=== PATIENT | female | born 1975 | race Caucasian/White ===

== ENCOUNTER 2016-06-13 17:26 | Emergency (ER) | payer MEDICARE, OTHER ==
[2016-06-13 18:27] LABS: BILIRUBIN NEGATIVE (NEGATIVE); BLOOD NEGATIVE Ery/uL (NEGATIVE); CLARITY CLEAR (CLEAR); COLOR STRAW (YELLOW); GLUCOSE (U) NORMAL (NORMAL); KETONE (U) NEGATIVE (NEGATIVE); LEUKOCYTES NEGATIVE Leu/uL (NEGATIVE); NITRITE NEGATIVE (NEGATIVE); PROTEIN NEGATIVE (NEGATIVE); UROBILINOGEN 0.2 mg/dL (0.2-1.0)
[2016-06-13 18:34] LABS: BASOPHIL 1.4 % (0-2); EOSINOPHIL 2.6 % (0-5); HCT 36.3 % (37.0-47.0); HGB 11.9 g/dl (12.5-16.0); LYMPHOCYTE 41.1 % (15-48); MCH 26.3 pg (25.0-31.0); MCHC 32.8 g/dL (32.0-36.0); MCV 80.1 fL (78.0-100.0); MONOCYTE 11.5 % (0-12); MPV 9.7 fL (6.0-9.5); NEUTROPHIL 43.4 % (41-80); PLT 319 K/uL (150-400); RBC 4.53 M/uL (4.20-5.40); RDW 14.2 % (11.5-14.0); WBC 5.8 K/uL (4.0-10.5)
[2016-06-13 18:56] LABS: ALBUMIN 4.1 g/dL (3.5-5.0); BILIRUBIN - TOTAL 0.3 mg/dL (0.1-1.0); CREATININE 0.7 mg/dL (0.5-1.0); GLOBULIN (CALCULATION) 2.7 g/dL (2.2-4.2); POTASSIUM 3.9 mmol/L (3.5-5.1); TOTAL PROTEIN 6.8 g/dL (6.4-8.3)
== END 2016-06-13 19:04 | disposition home or self-care (01) ==
LOC: FER 17:26
PROVIDERS: Internal Medicine
DX: J02.0 Streptococcal pharyngitis (principal); J40 Bronchitis, not specified as acute or chronic; F17.210 Nicotine dependence, cigarettes, uncomplicated; Z88.0 Allergy status to penicillin; Z88.2 Allergy status to sulfonamides; Z88.8 Allergy status to other drugs, medicaments and biological substances; Z91.09 Other allergy status, other than to drugs and biological substances
CPT/HCPCS: 36415; 71020; 80053; 81003; 85025; 87450; 87804; 87899; 94640; J2930

== ENCOUNTER 2016-08-11 17:06 | Emergency (ER) | payer MEDICARE, OTHER ==
[2016-08-11 18:02] LABS: BILIRUBIN NEGATIVE (NEGATIVE); BLOOD NEGATIVE Ery/uL (NEGATIVE); CLARITY CLEAR (CLEAR); COLOR YELLOW (YELLOW); GLUCOSE (U) NORMAL (NORMAL); KETONE (U) TRACE mg/dL (NEGATIVE); LEUKOCYTES TRACE Leu/uL (NEGATIVE); NITRITE NEGATIVE (NEGATIVE); PROTEIN NEGATIVE (NEGATIVE)
[2016-08-11 18:10] LABS: BACTERIA TRACE; MUCOUS TRACE
[2016-08-11 19:02] LABS: ALBUMIN 4.1 g/dL (3.5-5.0); BILIRUBIN - TOTAL 0.9 mg/dL (0.1-1.0); CREATININE 0.7 mg/dL (0.5-1.0); GLOBULIN (CALCULATION) 2.8 g/dL (2.2-4.2); PHOSPHORUS 3.1 mg/dL (2.7-4.5); POTASSIUM 3.7 mmol/L (3.5-5.1); TOTAL PROTEIN 6.9 g/dL (6.4-8.3)
[2016-08-11 19:09] LABS: BASOPHIL 0.6 % (0-2); EOSINOPHIL 2.7 % (0-5); HCT 37.9 % (37.0-47.0); HGB 12.7 g/dl (12.5-16.0); LYMPHOCYTE 35.2 % (15-48); MCHC 33.5 g/dL (32.0-36.0); MCV 77.5 fL (78.0-100.0); MONOCYTE 7.9 % (0-12); MPV 9.9 fL (6.0-9.5); NEUTROPHIL 53.6 % (41-80); PLT 400 K/uL (150-400); RBC 4.89 M/uL (4.20-5.40); RDW 14.7 % (11.5-14.0); WBC 8.6 K/uL (4.0-10.5)
== END 2016-08-11 22:00 | disposition home or self-care (01) ==
LOC: FER 17:06
PROVIDERS: Internal Medicine
DX: N20.0 Calculus of kidney (principal); E86.9 Volume depletion, unspecified; F17.200 Nicotine dependence, unspecified, uncomplicated; Z88.0 Allergy status to penicillin; Z88.1 Allergy status to other antibiotic agents; Z88.2 Allergy status to sulfonamides; Z88.8 Allergy status to other drugs, medicaments and biological substances; Z98.890 Other specified postprocedural states
CPT/HCPCS: 36415; 80053; 81001; 84100; 85025; 87088; J1170; J1885; J2405

== ENCOUNTER 2016-08-26 11:34 | Emergency (ER) | payer MEDICARE, OTHER ==
[2016-08-26 12:24] LABS: BASOPHIL 0.7 % (0-2); BILIRUBIN NEGATIVE (NEGATIVE); BLOOD NEGATIVE Ery/uL (NEGATIVE); CLARITY CLEAR (CLEAR); COLOR YELLOW (YELLOW); EOSINOPHIL 2.2 % (0-5); GLUCOSE (U) NORMAL (NORMAL); HCT 39.1 % (37.0-47.0); HGB 13.1 g/dl (12.5-16.0); KETONE (U) NEGATIVE (NEGATIVE); LEUKOCYTES NEGATIVE Leu/uL (NEGATIVE); LYMPHOCYTE 29.6 % (15-48); MCH 26.4 pg (25.0-31.0); MCHC 33.5 g/dL (32.0-36.0); MCV 78.8 fL (78.0-100.0); MONOCYTE 7.1 % (0-12); MPV 10.5 fL (6.0-9.5); NEUTROPHIL 60.4 % (41-80); NITRITE NEGATIVE (NEGATIVE); PLT 326 K/uL (150-400); PROTEIN NEGATIVE (NEGATIVE); RBC 4.96 M/uL (4.20-5.40); RDW 14.5 % (11.5-14.0); UROBILINOGEN 0.2 mg/dL (0.2-1.0); WBC 8.8 K/uL (4.0-10.5); pH 6.5 (5.0-9.0)
[2016-08-26 12:42] LABS: LACTIC ACID 1.1 mmol/L (0.5-2.2)
[2016-08-26 12:43] LABS: ALBUMIN 4.2 g/dL (3.5-5.0); BILIRUBIN - TOTAL 1.4 mg/dL (0.1-1.0); CREATININE 0.6 mg/dL (0.5-1.0); POTASSIUM 4.1 mmol/L (3.5-5.1); TOTAL PROTEIN 7.2 g/dL (6.4-8.3)
== END 2016-08-26 13:54 | disposition home or self-care (01) ==
LOC: FER 11:34
PROVIDERS: Internal Medicine
DX: T78.40XA Allergy, unspecified, initial encounter (principal); M32.9 Systemic lupus erythematosus, unspecified; F17.200 Nicotine dependence, unspecified, uncomplicated; Z85.42 Personal history of malignant neoplasm of other parts of uterus
CPT/HCPCS: 36415; 71020; 80053; 81003; 83605; 84484; 85025; 85379; 87040; 99285